=== PATIENT | male | born 1950 | race Caucasian/White ===

== ENCOUNTER 2020-09-16 20:59 | Emergency (ER) | payer OTHER, SELFPAY ==
--- NOTE | 2020-09-16 | ECG_ITS ---
Test Reason : HYPOTENSION Blood Pressure : / mmHG Vent. Rate : 145 BPM Atrial Rate : 145 BPM P-R Int : 116 ms QRS Dur : 088 ms QT Int : 280 ms P-R-T Axes : 003 -01 015 degrees QTc Int : 434 ms Sinus tachycardia Inferior infarct , age undetermined Abnormal ECG No previous ECGs available Referred By: Generic ED Physician Electronically Signed By:DILMA COLEY MD
--- NOTE | ~2020-09-16 | XR_ITS ---
EXAMINATION: XR CHEST CLINICAL INFORMATION: Fever COMPARISON: None TECHNIQUE: Frontal view of the chest was obtained. FINDINGS: Low lung volumes. Mild basilar atelectasis. No significant area of infiltrate. No failure. No effusion. XR/XR chest 1V IMPRESSION: Mild bilateral basilar atelectasis. Low lung volumes
--- NOTE | ~2020-09-16 | CT_ITS ---
EXAMINATION: CT CHEST, ABDOMEN AND PELVIS WITHOUT CONTRAST CLINICAL INFORMATION: Epigastric pain. Pancreatitis COMPARISON: No pertinent prior studies are available for comparison. TECHNIQUE: Multidetector volumetric imaging was performed from the thoracic inlet through the pubic symphysis without intravenous contrast. Sagittal and coronal reformatted images were obtained on the technologist workstation. This CT examination was performed using dose optimization techniques as appropriate, variously including the following: *Automated exposure control *Adjustment of mA and/or kV according to patient size (this includes techniques or standardized protocols for targeted exams where dose is matched to indication/reason for exam; i.e. extremities or head) *Use of iterative reconstruction technique DLP: 951 mGy-cm FINDINGS: CHEST: LUNGS: Slight motion degradation limits assessment. Biapical linear density favoring scarring or discoid atelectasis. No discrete lesion seen otherwise. MEDIASTINUM: The mediastinum is normal. Central vascular structures are unremarkable. No hilar or mediastinal lymphadenopathy. PERICARDIUM/PLEURA: There is no significant effusion. No pleural mass or thickening. CHEST WALL/AXILLA: Unremarkable. ABDOMEN/PELVIS: LIVER, GALLBLADDER, BILIARY TREE: The liver is normal in size, shape, and attenuation. No focal hepatic lesion or biliary ductal dilatation is present. Significant distended without acute inflammatory changes. PANCREAS: There are marked inflammatory changes within the pancreatic and peripancreatic location. Without IV contrast, it is difficult to decipher the integrity of the pancreatic parenchyma and to assess for pancreatic necrosis. No gross hemorrhage. The pancreas is heterogeneous suggesting significant intrapancreatic and peripancreatic fluid collections which appears somewhat organized suggesting chronicity and possibly walled off necrosis/pseudocysts. There are all fluid attenuating. Largest is along the perigastric location extending into the lesser sac measuring up to 9.1 x 8.8 cm transaxially. Other fluid collections track inferiorly to the right of midline. Fluid also tracks into the right anterior psoas location. No definite air or fistulous communication grossly. There is a small amount of perihepatic fluid as well. SPLEEN: Unremarkable. ADRENAL GLANDS: Unremarkable. KIDNEYS AND URETERS: The kidneys are normal in size, shape, and attenuation. No hydronephrosis or hydroureter or calculi seen. No perinephric stranding. BLADDER: Unremarkable. GASTROINTESTINAL TRACT: The small and large bowel are unremarkable. The appendix is unremarkable. ABDOMINAL WALL: No hernia is demonstrated. LYMPH NODES: Normal. VASCULAR: Unremarkable. PELVIC VISCERA: Small amount of fluid also tracks into the dependent aspects of the pelvis. OSSEOUS STRUCTURES: Unremarkable. CT/CT abdomen pelvis wo con IMPRESSION: There are no previous studies for correlation. There are severe changes of pancreatitis with application of pancreatitis with multiple fluid collections largest is still above tracking into the left upper quadrant as well as a right lower quadrant and pelvis. The integrity of the pancreatic parenchyma cannot be assessed due to lack of IV contrast. Element of pancreatic necrosis is suspected. The fluid collections are consistent with organized pseudocysts as well as walled off necrosis.
[2020-09-16 21:06] VITALS: BP 99/67; PULSE 145; RESP 16; TEMP 37.7; O2SAT 94; BMI 32.8
[2020-09-16 21:15] VITALS: BP 99/67; PULSE 145; RESP 32; TEMP 37.7; O2SAT 94
--- NOTE | 2020-09-16 21:22 | ED.GENADULT ---
HPI - General Adult General Chief complaint: General Medical Stated complaint: abnormal labs Time Seen by Provider: 09/16/20 21:02 Source: patient and EMS Mode of arrival: EMS Limitations: no limitations History of Present Illness HPI narrative: Patient is coming from [facility]. Patient was noted to be tachycardic and had a fever. They did labs and his lactic acid was elevated, therefore they called EMS and now has them to bring the patient to hospital. Prior to arrival, it is documented in the patient's transfer papers that he received 1 g of ceftriaxone IM at 20:00 on 09/16/2020. Patient states he has chronic abdominal pain, patient is known to have a diagnosis of pancreatitis. Patient states he was diagnosed on August 23, he was admitted in [facility], states he remained in the hospital for 2 weeks and then discharged to [facility]. Patient denies vomiting or having any diarrhea. Related Data Allergies Allergy/AdvReac Type Severity Reaction Status Date / Time No Known Allergies Allergy Verified 09/16/20 21:18 Review of Systems Review of Systems: Constitutional : No Weight loss, complaining of Fever, No Chills, No Night Sweats, No Fatigue, No Malaise ENT/Mouth : No Hearing loss, No Ear Pain, No Nasal Congestion, No Sinus Pain, No Hoarseness, No sore throat, No Rhinorrhea, No Swallowing Difficulty Eyes: No Eye Pain, No Swelling, No Redness, No Foreign Body, No Discharge, No Vision Changes Cardiovascular : No Chest Pain, No SOB, No Dyspnea on Exertion, No Orthopnea, No Edema, No Palpitations Respiratory : No Cough, No Sputum, No Wheezing, No Smoke Exposure, No Dyspnea Gastrointestinal : No Nausea, No Vomiting, No Diarrhea, No Constipation, complaining of chronic abdominal pain due to pancreatitis, No Hematochezia, No Melena Genitourinary : no irregular bleeding, No Dysuria, No Urinary Frequency, No Hematuria, No Urinary Incontinence, No Urgency, No Flank Pain, No Urinary Flow Changes, No Hesitancy Musculoskeletal : No joint pain, No Myalgias, No Joint Swelling Skin : No Skin Lesions, No rash Neuro : No Weakness, No Numbness, No Paresthesias, No Loss of Consciousness, No Dizziness, No Headache Psych : No Anxiety/Panic, No Depression, No SI/HI/AH/VH, No Social Issues, Heme/Lymph: No Bruising, No Bleeding,No Lymphadenopathy Endocrine : No Polyuria, No Polydipsia, No Temperature Intolerance [facility] Past Medical History Medical History (Updated 09/17/20 @ 00:04 by Cindy Christian MD) Hypertension Pancreatitis Social History Social History Alcohol intake: never Patient Tobacco Use Status: Never used Tobacco Use of substances other than those prescribed or required for medical reasons: No Advance Directives: No Physical Exam Vital Signs: Vital Signs: Last Vital Signs Temp 101.4 F H 09/17/20 00:30 Pulse 123 H 09/17/20 00:51 Resp 26 H 09/17/20 00:51 BP 88/55 L 09/17/20 00:51 Pulse Ox 94 09/17/20 00:51 Body Mass Index 32.8 Appearance: Alert. Oriented X3. No acute distress. Eyes: Pupils equal, round and reactive to light. ENT: Pharynx normal, dry oral mucosa Neck: Normal inspection. Neck supple. No lymph nodes noted. No crepitus CVS: Normal heart rate and rhythm. Pulses normal. Normal S1 and S2 Respiratory: No respiratory distress. Breath sounds normal. No Wheezing. No rales Abdomen: Soft , tenderness to palpation in epigastric area, No rigidity. No distention. Skin: Skin significantly warm and dry. Flushed, hives in abdomen, non itchy Extremities: No lower extremity edema. No Lacerations. No Rash Neuro: Oriented X 3. No motor deficit. No sensory deficit. Moving all extermities. No slurred speech. Course Course Course Narrative: Patient received 1 g of ceftriaxone prior to arrival, documented on patient's transfer papers from [facility]. Patient's fluids are being given based on ideal weight, patient is obese. 22:15: labs are available now, patient's white blood cell count is 30.4, lactic acid is 4. At this time, patient has not been taking to the CT scan yet, However, due to his history of recent pancreatitis, at this time I am concerned of the patient having necrotizing pancreatitis or a possible abcess. Although he already had 1 dose of IM ceftriaxone at 8pm, at this time I am starting IV metronidazole and IV cefepime CT scan shows severe changes of pancreatitis, patient has multiple fluid collections, suspicious for pancreatic necrosis, patient also has organize pseudocysts. I discussed the patient with Dr. France, he does not feel comfortable admitting the patient, requesting that I call surgery for advice. I spoke to Dr. Barrett, from the surgery perspective, patient will not be getting surgery. Patient will likely need IR. I spoke again to Dr. France, at this time, given that the patient was treated at [facility] for pancreatitis a few weeks ago, we will give him a call and transfer the patient to [facility] I spoke to the pediatric sports medicine specialist on-call at [facility], the patient will be admitted to the medical service, this will be a direct admit. I spoke to nurse practitioner Brigitte from the medical floor, patient will be admitted under Dr. Carrington. Patient had 1 episode of a blood pressure of 44. It was determined that the patient's blood pressure cuff was not placed correctly. Blood pressure was recheck, improved to 104 systolic EMS is here, patient has a blood pressure of 108/60, heart rate 130, oxygen saturation 96% on room air, patient awake alert, mentating well. Medical Decision Making Lab Data Result diagrams: 09/16/20 21:29 09/16/20 21:29 Labs: Lab Results 09/16/20 09/16/20 09/16/20 Range/Units 21:28 21:29 21:29 WBC 30.3 H* (4.8-10.8) X10*3/uL RBC 5.12 (4.60-5.80) X10*6/uL Hgb 16.4 (14.0-18.0) g/dl Hct 47.7 (42-52) % MCV 93.2 (80-98) fL MCH 32.0 (27.0-33.0) pg MCHC 34.4 (31.0-36.0) g/dl RDW 13.5 (11.0-16.0) % Plt Count 290 (160-400) X10*3/uL MPV 10.2 (9.4-12.4) fL Immature Gran % (Auto) 1.3 H (0.0-0.4) % Neut % (Auto) 86.7 H (45-73) % Lymph % (Auto) 5.4 L (20-40) % Cobb % (Auto) 6.2 (2-11) % Eos % (Auto) 0.2 (0-4) % Baso % (Auto) 0.2 (0-2) % Lymph # (Auto) 1.6 (1.2-4.9) X10*3/uL Cobb # (Auto) 1.9 H (0.1-1.2) X10*3/uL Eos # (Auto) 0.1 (0.0-0.4) X10*3/uL Baso # (Auto) 0.1 (0.0-0.2) X10*3/uL Abs Immat Gran (auto) 0.38 H (0.00-0.03) X10*3/uL Absolute Neuts (auto) 26.3 H (2.0-8.3) X10*3/uL Absolute Nucleated RBC 0.000 (0.0-0.012) X10*3/uL Nucleated RBC % (auto) 0.0 (0.0-0.2) /100WBC Smear Tech's Comments VERIFIED PT (10.8-13.0) SEC INR (0.9-1.1) Sodium 138 (135-145) mmol/L Potassium 4.1 (3.3-5.1) mmol/L Chloride 99 (96-108) mmol/L Carbon Dioxide 23 (22-29) mmol/L Anion Gap 20 (12-20) BUN 24 H (9-16) mg/dL Creatinine 2.07 H (0.5-1.4) mg/dL Estim Creat Clear Calc 43.1 Estimated GFR 32 Random Glucose 327 H (60-115) mg/dL Lactic Acid 4.0 H* (0.5-2.0) mmol/L Lactic Acid Fup @ 2Hr (0.5-2.0) mmol/L Calcium 9.7 (8.4-10.2) mg/dL Total Bilirubin 2.7 H (0.0-1.0) mg/dL Direct Bilirubin 0.5 (0.0-0.5) mg/dL AST 24 (5-37) U/L ALT 35 (0-40) U/L Alkaline Phosphatase 105 (39-117) U/L Troponin I High Sens (<3.5-35.0) ng/L B-Natriuretic Peptide (<100) pg/mL Total Protein 6.2 L (6.5-8.0) g/dL Albumin 3.4 L (3.5-5.0) g/dL Lipase 25 (8-78) U/L COVID-19 ([facility]) (Negative) COVID-19 Clin Com 09/16/20 09/16/20 09/17/20 Range/Units 21:29 21:29 00:04 WBC (4.8-10.8) X10*3/uL RBC (4.60-5.80) X10*6/uL Hgb (14.0-18.0) g/dl Hct (42-52) % MCV (80-98) fL MCH (27.0-33.0) pg MCHC (31.0-36.0) g/dl RDW (11.0-16.0) % Plt Count (160-400) X10*3/uL MPV (9.4-12.4) fL Immature Gran % (Auto) (0.0-0.4) % Neut % (Auto) (45-73) % Lymph % (Auto) (20-40) % Cobb % (Auto) (2-11) % Eos % (Auto) (0-4) % Baso % (Auto) (0-2) % Lymph # (Auto) (1.2-4.9) X10*3/uL Cobb # (Auto) (0.1-1.2) X10*3/uL Eos # (Auto) (0.0-0.4) X10*3/uL Baso # (Auto) (0.0-0.2) X10*3/uL Abs Immat Gran (auto) (0.00-0.03) X10*3/uL Absolute Neuts (auto) (2.0-8.3) X10*3/uL Absolute Nucleated RBC (0.0-0.012) X10*3/uL Nucleated RBC % (auto) (0.0-0.2) /100WBC Smear Tech's Comments PT 23.2 H (10.8-13.0) SEC INR 1.9 H (0.9-1.1) Sodium (135-145) mmol/L Potassium (3.3-5.1) mmol/L Chloride (96-108) mmol/L Carbon Dioxide (22-29) mmol/L Anion Gap (12-20) BUN (9-16) mg/dL Creatinine (0.5-1.4) mg/dL Estim Creat Clear Calc Estimated GFR Random Glucose (60-115) mg/dL Lactic Acid (0.5-2.0) mmol/L Lactic Acid Fup @ 2Hr (0.5-2.0) mmol/L Calcium (8.4-10.2) mg/dL Total Bilirubin (0.0-1.0) mg/dL Direct Bilirubin (0.0-0.5) mg/dL AST (5-37) U/L ALT (0-40) U/L Alkaline Phosphatase (39-117) U/L Troponin I High Sens 21.2 (<3.5-35.0) ng/L B-Natriuretic Peptide 50 (<100) pg/mL Total Protein (6.5-8.0) g/dL Albumin (3.5-5.0) g/dL Lipase (8-78) U/L COVID-19 ([facility]) Negative (Negative) COVID-19 Clin Com See Note 09/17/20 Range/Units 00:04 WBC (4.8-10.8) X10*3/uL RBC (4.60-5.80) X10*6/uL Hgb (14.0-18.0) g/dl Hct (42-52) % MCV (80-98) fL MCH (27.0-33.0) pg MCHC (31.0-36.0) g/dl RDW (11.0-16.0) % Plt Count (160-400) X10*3/uL MPV (9.4-12.4) fL Immature Gran % (Auto) (0.0-0.4) % Neut % (Auto) (45-73) % Lymph % (Auto) (20-40) % Cobb % (Auto) (2-11) % Eos % (Auto) (0-4) % Baso % (Auto) (0-2) % Lymph # (Auto) (1.2-4.9) X10*3/uL Cobb # (Auto) (0.1-1.2) X10*3/uL Eos # (Auto) (0.0-0.4) X10*3/uL Baso # (Auto) (0.0-0.2) X10*3/uL Abs Immat Gran (auto) (0.00-0.03) X10*3/uL Absolute Neuts (auto) (2.0-8.3) X10*3/uL Absolute Nucleated RBC (0.0-0.012) X10*3/uL Nucleated RBC % (auto) (0.0-0.2) /100WBC Smear Tech's Comments PT (10.8-13.0) SEC INR (0.9-1.1) Sodium (135-145) mmol/L Potassium (3.3-5.1) mmol/L Chloride (96-108) mmol/L Carbon Dioxide (22-29) mmol/L Anion Gap (12-20) BUN (9-16) mg/dL Creatinine (0.5-1.4) mg/dL Estim Creat Clear Calc Estimated GFR Random Glucose (60-115) mg/dL Lactic Acid (0.5-2.0) mmol/L Lactic Acid Fup @ 2Hr 2.2 H* (0.5-2.0) mmol/L Calcium (8.4-10.2) mg/dL Total Bilirubin (0.0-1.0) mg/dL Direct Bilirubin (0.0-0.5) mg/dL AST (5-37) U/L ALT (0-40) U/L Alkaline Phosphatase (39-117) U/L Troponin I High Sens (<3.5-35.0) ng/L B-Natriuretic Peptide (<100) pg/mL Total Protein (6.5-8.0) g/dL Albumin (3.5-5.0) g/dL Lipase (8-78) U/L COVID-19 ([facility]) (Negative) COVID-19 Clin Com ECG Data Attestation: I personally reviewed and interpreted this ECG as follows: (Sinus tachycardia, heart rate 145, no ST segment depression or elevation, no T-wave inversion) Critical Care Time Critical Care Time Total Critical Care Time: 60 Discharge Plan Discharge Clinical Impression: Necrotizing pancreatitis Sepsis Qualifiers: Sepsis type: sepsis due to unspecified organism Sepsis acute organ dysfunction status: unspecified Qualified Code(s): A41.9 - Sepsis, unspecified organism Patient Disposition: Xfer Acute Care Hospital Transfer Details: [facility], direct admission to medical floor
[2020-09-16] MEDS: 0.9 % Sodium Chloride 1,000 ML 999 ML IVCONT ×3 (21:37→21:38)
[2020-09-16 21:41] LABS: Basophils Percent Auto 0.2 % (0-2); Hemoglobin 16.4 g/dl (14.0-18.0); MANUAL DIFF FLAG SCAN; Mean Platelet Volume 10.2 fL (9.4-12.4); Red Cell Distribution Width 13.5 % (11.0-16.0); SCAN SMEAR FLAG 1
[2020-09-16 21:43] VITALS: BP 98/64; PULSE 136; RESP 28; TEMP 39.4; O2SAT 95
[2020-09-16 21:44] LABS: INTERNATIONAL NORM RATIO 1.9 (0.9-1.1); Prothrombin Time 23.2 SEC (10.8-13.0)
[2020-09-16 21:45] LABS: Basophils Absolute Auto 0.1 X10*3/uL (0.0-0.2); Eosinophils Absolute Auto 0.1 X10*3/uL (0.0-0.4); Eosinophils Percent Auto 0.2 % (0-4); Hematocrit 47.7 % (42-52); Imm Gran Abs Auto 0.38 X10*3/uL (0.00-0.03); Imm Gran Pct Auto 1.3 % (0.0-0.4); Lymphocytes Absolute Auto 1.6 X10*3/uL (1.2-4.9); Lymphocytes Percent Auto 5.4 % (20-40); Mean Corpuscular HGB Conc 34.4 g/dl (31.0-36.0); Mean Corpuscular Volume 93.2 fL (80-98); Monocytes Absolute Auto 1.9 X10*3/uL (0.1-1.2); Monocytes Percent Auto 6.2 % (2-11); Neutrophils Absolute Auto 26.3 X10*3/uL (2.0-8.3); Neutrophils Percent Auto 86.7 % (45-73); Platelet Count 290 X10*3/uL (160-400); Red Blood Count 5.12 X10*6/uL (4.60-5.80)
[2020-09-16 21:47] LABS: White Blood Count 30.3 X10*3/uL (4.8-10.8)
[2020-09-16 22:01] LABS: Alanine Aminotransferase 35 U/L (0-40); Albumin Level 3.4 g/dL (3.5-5.0); Alkaline Phosphatase 105 U/L (39-117); Anion Gap 20 (12-20); Aspartate Amino Transferase 24 U/L (5-37); Bilirubin Direct 0.5 mg/dL (0.0-0.5); Bilirubin Total 2.7 mg/dL (0.0-1.0); Blood Urea Nitrogen 24 mg/dL (9-16); Calcium 9.7 mg/dL (8.4-10.2); Carbon Dioxide 23 mmol/L (22-29); Chloride 99 mmol/L (96-108); Creatinine Clr Calc Pharmacy 43.1; Estimated Glomerular Filt Rate 32; Glucose Random 327 mg/dL (60-115); Lipase 25 U/L (8-78); Potassium 4.1 mmol/L (3.3-5.1); Sodium 138 mmol/L (135-145); Total Protein 6.2 g/dL (6.5-8.0)
[2020-09-16 22:03] LABS: Troponin-I High Sensitivity 21.2 ng/L (<3.5-35.0)
[2020-09-16 22:22] LABS: SLIDE REVIEW VERIFIED
[2020-09-16 22:24] LABS: B Type Natriuretic Peptide 50 pg/mL (<100)
[2020-09-16] MEDS: Morphine Sulfate 2 MG/ML CARTRIDGE IVPUSH (22:35)
[2020-09-16] MEDS: Acetaminophen 325 MG TABLET 650 MG PO (22:35)
[2020-09-16] MEDS: metroNIDAZOLE/NS 500 MG/100 ML PIGGYBACK 100 MG IV (22:35)
[2020-09-16] MEDS: cefEPime HCl 1 GM in 0.9 % Sodium Chloride 50 ML IV (22:36)
[2020-09-16 23:35] LABS: Reflex Lactate? Lactic Acid Added
[2020-09-17 00:24] LABS: COVID-19 Test Negative (Negative); IDNOW Serial# 9DD0AD1C
[2020-09-17 00:30] VITALS: BP 104/69; PULSE 135; RESP 32; TEMP 38.6; O2SAT 94
[2020-09-17 00:36] LABS: ~Lactic Acid-LAB USE ONLY 2.2 mmol/L (0.5-2.0)
[2020-09-17] MEDS: 0.9 % Sodium Chloride 1,000 ML 999 ML IVCONT (00:42)
[2020-09-17 00:51] VITALS: BP 88/55; PULSE 123; RESP 26; O2SAT 94
[2020-09-17 01:22] VITALS: BP 108/60; PULSE 128; RESP 28; O2SAT 94
[2020-09-17 02:08] LABS: Reflex Lactate? 2 Y
== END 2020-09-17 01:33 | disposition short-term general hospital (02) ==
PROVIDERS: Emergency Provider Emergency Medicine; PCP Internal Medicine
DX: A41.9 Sepsis, unspecified organism (principal); K85.91 Acute pancreatitis with uninfected necrosis, unspecified; K86.3 Pseudocyst of pancreas; I10 Essential (primary) hypertension; Z20.822 Contact with and (suspected) exposure to COVID-19
CPT/HCPCS: 36415; 71045; 71250; 74176; 80048; 80076; 83605; 83690; 83880; 84484; 85025; 85610; 87040; 87635; 93005; 96361; 96365; 96375; 99284; 99285; 99291; J0692; J2270